=== PATIENT | male | born 1945 | race Caucasian/White ===

== ENCOUNTER → 2021-10-08 | Outpatient (CLI) | payer MEDICARE ==
[~2021-10-08] MED LIST: ASPIR 8181 MG PO; CAPOZIDE 25/15 T1 EA GT; CARAFATE1 GM/10 ML PO; COZAAR50 MG PO; FISH OIL 1,2001 EAC1 PO; FISH OIL300 MG PO; GLUCOPHAGE500 MG PO; HYDROCHLOROTHIA25 MG PO; LIPITOR TAB 2020 MG PO; MULTIVITAMINS1 EAC1 PO; NORVASC 5 MG TAB5 MG PO; PEPTO-BISMOL262 M1 PO; PRILOSEC OTC20 MG PO; SINGULAIR10 MG PO; TOPROL XL100 MG PO; VASOTEC20 MG PO; ZANTAC 150 MG150 MG PO; ZOFRAN 8 MG TAB8 MG PO; ZOFRAN4 MG PO; ZYRTEC10 MG PO
== END ==
LOC: HEART 5 09:58
DX: R00.1 Bradycardia, unspecified (principal); I11.9 Hypertensive heart disease without heart failure; I08.1 Rheumatic disorders of both mitral and tricuspid valves
CPT/HCPCS: 93306

== ENCOUNTER → 2021-12-02 | Outpatient (CLI) | payer MEDICARE | LOC: NM 13:00 | DX: R07.9 Chest pain, unspecified (principal); R00.1 Bradycardia, unspecified | CPT/HCPCS: 78452; 93017; A9502 ==

== ENCOUNTER → 2021-12-08 | Outpatient (CLI) | payer MEDICARE | LOC: CT 09:57 | DX: R19.7 Diarrhea, unspecified (principal); R10.30 Lower abdominal pain, unspecified; R63.4 Abnormal weight loss; K44.9 Diaphragmatic hernia without obstruction or gangrene; K76.0 Fatty (change of) liver, not elsewhere classified; M89.8X8 Other specified disorders of bone, other site; N42.89 Other specified disorders of prostate; I70.0 Atherosclerosis of aorta | CPT/HCPCS: 36415; 82565; 84520; Q9967 ==